=== PATIENT | female | born 2005 | race Asian ===

== ENCOUNTER 2023-02-01 14:13 | Emergency (ER) | payer OTHER ==
[~2023-02-01] VITALS: Ht 165.1 cm; Wt 49.9 kg
[2023-02-01 14:15] VITALS: BP_SYST 116; PULSE 103; RESP 20; TEMP 98; O2SAT 99
[2023-02-01] MEDS ORDERED: FAMOTIDINE PF 20 MG/2 ML VIAL IVP ONE (14:30)
[2023-02-01] MEDS ORDERED: NACL 0.9% 1,000 ML IV ONE (14:30)
[2023-02-01] MEDS ORDERED: DIPHENHYDRAMINE INJ 50 MG/ML VIAL IVP ONE (14:30)
[2023-02-01] MEDS ORDERED: PRED20TA PO (15:56)
[2023-02-01] MEDS ORDERED: EPIN0.3P3 IM (15:58)
[2023-02-01 16:21] VITALS: BP_SYST 116; PULSE 103; RESP 20; TEMP 98; O2SAT 99
== END 2023-02-01 16:21 | disposition home or self-care (01) ==
LOC: SED 14:13
DX: R20.2 Paresthesia of skin (principal); R06.02 Shortness of breath; R11.0 Nausea; Z91.010 Allergy to peanuts; Z91.013 Allergy to seafood; Z79.899 Other long term (current) drug therapy
CPT/HCPCS: 99284; 96374; 71045; 96361; 96375; 93005; 81025; J1200; J3490; J7030